=== PATIENT | female | born 2000 | race Caucasian/White ===

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

== ENCOUNTER 2019-01-05 13:38 | Emergency (ER) | payer OTHER ==
--- OUTSIDE RECORDS SUMMARY | 2019-01-05 13:56 | XMS REPORT ---
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, in partial remission Problem Anxiety F41.9 Active 22345287 Problem Insomnia due to F51.05 Active 95902239 other mental disorder ALLERGIES No Information ENCOUNTERS Encounter Location Date Diagnosis [facility] [address] Dec, [place] [address] [facility] [address] [facility] Dec, [place] [address] [facility] [address] [place] [address] Nov, [place] [address] Oct, [place] [address] [facility] [address] [place] Oct, [place] [address] Oct, [place] [address] Mar, Sleep disturbance G47.9 and [facility] [place] Anxiety F41.9 [address] [facility] [address] February, [place] [address] [facility] [address] [facility] [address] Feb, 2018 [place] [address] [facility] [address] February, [place] [address] [facility] [address] February, [place] [address] contraception Z30.42 and Dependent edema R60.9 [facility] [address] [facility] Jan, Anxiety F41.9 [place] [address] Jan, Anxiety F41.9 [place] [address] [facility] [address] [place] Dec, Anxiety F41.9 [place] [address] [facility] [address] [place] Dec, [place] [address] disorder, in partial remission F33.41 ; Anxiety F41.9 ; Overweight (BMI 25.0-29.9) E66.3 and BMI 25.0-25.9,adult Z68.25 [facility] [address] [facility] [address] Nov, Anxiety F41.9 [facility] [place] [address] [facility] [address] [place] Nov, [place] [address] [facility] [address] [place] [address] Nov, Anxiety F41.9 [place] [address] [facility] [address] [place] Oct, [place] [address] [facility] [address] [place] Oct, Anxiety F41.9 ; [place] [address] due to other mental disorder F51.05 ; Overweight (BMI 25.0-29.9) E66.3 and BMI 26.0-26.9,adult Z68.26 [facility] [address] Sep, [place] [address] [facility] [address] Aug, [place] [address] [facility] [address] Aug, [place] [address] disorder, in partial remission F33.41 ; School physical exam Z02.0 ; Encounter for immunization Z23 ; BMI 25.0-25.9,adult Z68.25 and Overweight (BMI 25.0-29.9) E66.3 [place] [address] [place] Aug, Severe depression F32.2 ; [place] [address] Encounter for Depo-Provera contraception Z30.42 and Encounter for immunization Z23 [place] [address] Aug, Severe depression F32.2 [place] [address] [place] [address] [place] Jul, Severe depression F32.2 [place] [address] Facilitated Enrollment UNKNOWN Jul, - [place] [address] [place] Jul, Severe depression F32.2 ; [place] [address] Stress headaches F45.41 and Sleep disturbance G47.[address] Jul, [place] [address] May, [place] [address] examination of student Z02.0 ; Encounter for Depo-Provera contraception Z30.42 and HPV vaccine counseling Z71.89 [place] [address] [place] February, [place] [address] [place] [address] [place] February, [place] [address] contraception Z30.42 and Screening for STD (sexually transmitted disease) Z11.3 [place] [address] February, [place] [address] [place] [address] [place] Nov, Depo contraception Z30.40 [place] [address] [place] [address] [place] Oct, [place] [address] disorder F41.1 and Lumbago of lumbosacaral region with sciatica M54.40 [place] [address] [place] Sep, Sleep disturbance G47.9 [place] [address] Stress headaches F45.41 [place] [address] [place] Jul, Depo contraception Z30.49 [place] [address] [place] [address] [place] Jul, [place] [address] Z23 [place] [address] [place] Jul, [place] [address] [place] [address] [place] Apr, [place] [address] [place] [address] February, [place] [address] initiation of other contraceptive measures Z30.[address] Jan, [place] [address] [facility] [address] Dec, [place] [address] [facility] [address] Dec, [place] [address] [facility] [address] [place] Dec, [place] [address] [facility] [address] [place] Dec, [place] [address] disorder [address], [place] [address] [place] [address] [place] Nov, Neck pain M54.2 [place] [address] Contusion of head, unspecified part of head, subsequent encounter S00.93XD [facility] [address] Jul, [place] [address] [facility] [address] Jul, [place] [address] [facility] [address] Jun, [place] [address] [facility] [address] [place] Jun, [place] [address] disorder [address] Jun, Generalized anxiety [place] disorder 300.02 [address] [place] [address] [place] Jun, Anxiety 300.00 [place] [address] Immunization due V05.9 [facility] [address] [place] May, [place] [address] health check V20.2 [facility] [address] Apr, [place] [address] [facility] [address] Mar, Folliculitis 704.8 [place] [address] [facility] [address] Mar, [place] [address] prescription of oral contraceptives V25.[address] [place] [address] February, UTI [place] [address] infection) 599.0 [facility] [address] February, [place] [address] [place] [address] Jan, [place] [address] [facility] [address] Jan, [place] [address] [facility] [address] Nov, Lumbago 724.2 ; [place] [address] Dysmenorrhea 625.3 and Immunization due V05.[address] [place] [address] Oct, OCP ([place] [address] pills) initiation V25.01 and Dysmenorrhea 625.[address] [place] [address] Sep, [place] [address] [place] [address] [place] [address] [place] [address] Sep, [place] [address] Sep, [place] [address] Sep, [place] [address] [place] [address] [place] Sep, [place] [address] [place] [address] Sep, Lymphadenopathy 785.6 [place] [address] Jaw pain 784.[address] Sep, [address] Sep, Lymphadenopathy 785.6 [place] [address] [facility] [address] Aug, Lymphadenopathy 785.6 [place] [address] [place] [address] May, [place] [address] [facility] [address] May, [place] [address] [facility] [address] May, [place] [address] [facility] [address] Mar, Low back pain 724.2 [place] [address] [place] [address] Mar, [place] [address] health check V20.2 and Seasonal allergic rhinitis 477.9 IMMUNIZATIONS No Known Immunizations SOCIAL HISTORY Never Assessed REASON FOR REFERRAL FUNCTIONAL STATUS PLAN OF CARE VITAL SIGNS MEDICATIONS Unknown Medications PROCEDURES No Known procedures RESULTS No Results REASON FOR VISIT Information Insurance Providers [facility] Health Member Patient Patient Patient Patient Patient Subscriber Subscriber Subscriber Group Insurance Plan Plan Plan Plan ID Relationship Address Phone Name Date of ID Name Date of No Type Insurance Insurance Insurance Coverage to Subscriber Address Phone Name Dates Medicaid [id number] Medicaid self Rachana [id number] Wrap Ira [facility] [address] [place] [address] [address] Express self Rachana [id number] [facility] [id number] [address] [address] [place] [address] Company Blue [phone] Blue self Rachana [id number] Choice Opt [id number] 89 Choice Opt [place] 0 Medical [place] Medical [address] Medicaid [id number] Medicaid self Rachana [id number] [facility] [address] [place] [address] Andrew [phone] Andrew self Rachana [id number] Medicaid [place] 47 [place] [address] Medical Excellus [phone] Excellus Rachana [id number] BCBS PPO [id number] BCBS PPO [place] 4 EPO Trad [place] EPO Trad [address] [place] [phone] Andrew self Rachana [id number] Medicaid [id number] Medicaid [facility] [place] [address] [employer] Blue [phone] Blue self Rachana [id number] Choice Opt 9255 [address] 83 Choice Opt [place] GG[address] [place] [id number] [place] Hplex Remi Dept Hplex Remi [facility] [address] Case [phone] Case self Rachana [id number] Management [place] [address] [facility] [address] [facility] MEDICAL (GENERAL) HISTORY Type Description Date Medical History seasonal allergies Medical History anxiety Medical History Seasonal allergic rhinitis Medical History Low back pain Medical History Dysmenorrhea Medical History Generalized anxiety disorder
--- OUTSIDE RECORDS SUMMARY | 2019-01-05 13:56 | XMS REPORT ---
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 81909575 depressive disorder, in partial remission Problem Anxiety F41.9 Active 38134920 Problem Insomnia due to F51.05 Active 85807732 other mental disorder ALLERGIES No Information ENCOUNTERS Encounter Location Date Diagnosis [facility] [address] Dec, [place] [address] Nov, [place] [address] Oct, [place] [address] [facility] [address] Oct, [place] [address] Oct, [place] [address] Mar, Sleep disturbance G47.9 [facility] [place] Anxiety F41.9 [address] [facility] [address] February, [place] [address] February, [place] [address] [facility] [address] February, Encounter [place] [address] contraception Z30.42 and Dependent edema R60.9 [place] [address] February, [place] [address] [facility] [address] [facility] Jan, Anxiety F41.9 [place] [address] Jan, Anxiety F41.9 [place] [address] [place] [address] Dec, Anxiety F41.9 [place] [address] [place] [address] Dec, [place] [address] disorder, in partial remission F33.41 ; Anxiety F41.9 ; Overweight (BMI 25.0-29.9) E66.3 and BMI 25.0-25.9,adult Z68.25 [facility] [address] [place] [address] Nov, Anxiety F41.9 [address] [place] [address] Nov, [place] [address] [facility] [address] [facility] Nov, Anxiety F41.9 [place] [address] [place] [address] Oct, [place] [address] Oct, Anxiety F41.9 ; [place] [address] due to other mental disorder F51.05 ; Overweight (BMI 25.0-29.9) E66.3 and BMI 26.0-26.9,adult Z68.26 [place] [address] Sep, [place] [address] [facility] [address] Aug, [place] [address] [place] [address] Aug, [place] [address] disorder, in partial remission F33.41 ; School physical exam Z02.0 ; Encounter for immunization Z23 ; BMI 25.0-25.9,adult Z68.25 and Overweight (BMI 25.0-29.9) E66.3 [place] [address] Aug, Severe depression F32.2 ; [place] [address] Encounter for Depo-Provera contraception Z30.42 and Encounter for immunization Z23 [place] [address] [place] Aug, Severe depression F32.2 [place] [address] Jul, Severe depression F32.2 [place] [address] Facilitated Enrollment UNKNOWN Jul, - [place] [address] Jul, Severe depression F32.2 ; [place] [address] Stress headaches F45.41 and Sleep disturbance G47.9 [facility] [address] [facility] Jul, [place] [address] May, [place] [address] examination of student Z02.0 ; Encounter for Depo-Provera contraception Z30.42 and HPV vaccine counseling Z71.[address] February, [place] [address] February, Encounter [place] [address] contraception Z30.42 and Screening for STD (sexually transmitted disease) Z11.3 [place] [address] February, [place] [address] Nov, Depo contraception Z30.40 [place] [address] Oct, [place] [address] disorder F41.1 and Lumbago of lumbosacaral region with sciatica M54.40 [place] [address] Sep, Sleep disturbance G47.9 [place] [address] Stress headaches F45.41 [place] [address] Jul, Depo contraception Z30.49 [place] [address] [place] [address] Jul, [place]counter [place] [address] Z23 [place] [address] Jul, [place] [address] [place] [address] Apr, [place] [address] [place] [address] February, [place] [address] initiation of other contraceptive measures Z30.09 [facility] [address] [facility] Jan, [place] [address] [facility] [address] Dec, [place] [address] [facility] [address] Dec, [place] [address] [facility] [address] Dec, [place] [address] [facility] [address] Dec, [place] [address] disorder F41.1 [facility] [address] [facility] Nov, [place] [address] [facility] [address] Nov, Neck pain M54.2 [place] [address] Contusion of head, unspecified part of head, subsequent encounter S00.93XD [facility] [address] Jul, [place] [address] [place] [address] Jul, [place] [address] [place] [address] Jun, [place] [address] [facility] [address] [facility] Jun, Generalized anxiety [place] disorder 300.02 [address] [place] [address] Jun, [place] [address] disorder 300.02 [place] [address] Jun, Anxiety 300.00 [place] [address] Immunization due V05.9 [facility] [address] May, Rout[place] [address] health check V20.2 [facility] [address] Apr, [place] [address] [facility] [address] Mar, Folliculitis 704.8 [place] [address] [facility] [address] Mar, [place] [address] prescription of oral contraceptives V25.01 [facility] [address] February, UTI ([place] [address] infection) 599.0 [facility] [address] February, [place] [address] [facility] [address] Jan, [place] [address] [place] [address] Jan, [place] [address] [facility] [address] Nov, Lumbago 724.2 ; [place] [address] Dysmenorrhea 625.3 and Immunization due V05.9 [place] [address] Oct, OCP ([place] [address] pills) initiation V25.01 and Dysmenorrhea 625.3 [place] [address] Sep, [place] [address] [place] [address] Sep, [place] [address] [place] [address] Sep, [place] [address] Sep, [place] [address] [place] [address] [address] Sep, [place] [address] [place] [address] Sep, [place] [address] [place] [address] Sep, Lymphadenopathy 785.6 [place] [address] Jaw pain 784.[address] Sep, [place] [address] [place] [address] Sep, Lymphadenopathy 785.6 [place] [address] [place] [address] Aug, Lymphadenopathy 785.6 [place] [address] [place] [address] May, [place] [address] [place] [address] May, [place] [address] [place] [address] May, [place] [address] [place] [address] Mar, Low back pain 724.2 [place] [address] [place] [address] Mar, [place] [address] health check V20.2 and Seasonal allergic rhinitis 477.9 IMMUNIZATIONS No Known Immunizations SOCIAL HISTORY Never Assessed REASON FOR REFERRAL FUNCTIONAL STATUS PLAN OF CARE VITAL SIGNS MEDICATIONS Unknown Medications PROCEDURES No Known procedures RESULTS No Results REASON FOR VISIT 1st no show Insurance Providers [facility] Health Health Member Patient Patient Patient Patient Patient Subscriber Subscriber Subscriber Group Insurance Plan Plan Plan Plan ID Relationship Address Phone Name Date of ID Name Date of No Type Insurance Insurance Insurance Coverage to Subscriber Address Phone Name Dates Blue [phone] Blue self Rachana [id number] Choice Opt [id number] Choice Opt [place] 0 Medical [place] Medical [address] [id number] [phone] Medicaid self Rachana [id number] [facility] [address] [place] [address] Blue [phone] Blue self Rachana [id number] Choice Opt 9255 Attn 83 Choice Opt [place] GG457 Evans Claims [id number] Evans Hplex Remi Dept Hplex Remi [facility] [address] [place] [phone] [place] self Rachana [id number] Medicaid [place] 47 Medicaid [facility] [address] Medical Express [address] Express self Rachana [id number] [facility] Scripts [id number] Scripts [place] [address] [place] [address] Company Andrew [phone] Andrew self Rachana [id number] Medicaid [id number] Medicaid [facility] [place] [address] [employer] Excellus [phone] Excellus Rachana [id number] BCBS PPO [id number] BCBS PPO [place] 4 EPO Trad [place] EPO Trad [address] Case [phone] Case self Rachana [id number] Management [place] 02 Management [facility] [address] [facility] Medicaid [phone] Medicaid self Rachana [id number] [facility] [address] [place] [address] MEDICAL (GENERAL) HISTORY Type Description Date Medical History seasonal allergies Medical History anxiety Medical History Seasonal allergic rhinitis Medical History Low back pain Medical History Dysmenorrhea Medical History Generalized anxiety disorder
[2019-01-05 14:01] VITALS: BP 98/67
[2019-01-05] MEDS ORDERED: Ketorolac INJ* 60 MG/2 ML VIAL IM ONE (15:07)
--- NOTE | 2019-01-05 15:41 | UC ---
Back Pain HPI - HPI Summary HPI Summary: pt c/o sudden onset of right side low back pain after lifting 95 lbs yesterday. Pt states that she feels as thought her low back is "crooked and flat ". Pt has been applying ice and warm heat with no improvement. Pt denies loss of bowel and bladder control, denies numbness or tingling. - History of Current Complaint Chief Complaint: UCBackPain Stated Complaint: BACK INJURY Time Seen by Provider: 01/05/19 14:47 Hx Obtained From: Patient Hx Last Menstrual Period: 01/04/18 ?: No Onset/Duration: Sudden Onset, Lasting Days, Still Present Timing: Constant Severity Initially: Moderate Severity Currently: Moderate Pain Intensity: 8 Back Pain: Is Discrete @ Character: Dull, Aching, Spasmodic, Stiffness Aggravating Factor(s): Movement Alleviating Factor(s): Rest, Position Associated Signs And Symptoms: Positive: Negative - Risk Factors AAA Risk Factors: Negative TAD Risk Factors: Negative Cauda Equina Risk Factors: Negative Epidural Abscess Risk Factors: Negative - Allergies/Home Medications Allergies/Adverse Reactions: Allergies Allergy/AdvReac Type Severity Reaction Status Date / Time No Known Allergies Allergy Verified 01/05/19 14:01 Home Medications: Home Medications Acetaminophen 325 mg PO 01/05/19 [History] PMH/Surg Hx/FS Hx/Imm Hx Previously Healthy: Yes - Surgical History Surgical History: None - Family History Known Family History: Positive: Other - BIPOLAR Negative: Diabetes - Social History Occupation: Student Lives: With Family Alcohol Use: None Substance Use Type: None Smoking Status (MU): Never Smoked Tobacco Have You Smoked in the Last Year: No Review of Systems All Other Systems Reviewed And Are Negative: Yes Constitutional: Positive: Negative Skin: Positive: Negative Eyes: Positive: Negative ENT: Positive: Negative Respiratory: Positive: Negative Cardiovascular: Positive: Negative Gastrointestinal: Positive: Negative Genitourinary: Positive: Negative Motor: Positive: Decreased ROM - low back Neurovascular: Positive: Negative Musculoskeletal: Positive: Decreased ROM - low back, Myalgia - low back Neurological: Positive: Negative Psychological: Positive: Negative Is Patient Immunocompromised?: No Physical Exam Triage Information Reviewed: Yes Appearance: Pain Distress Vital Signs: Initial Vital Signs Temp 98.7 F 01/05/19 13:58 Pulse 87 01/05/19 13:58 Resp 18 01/05/19 13:58 BP 98/67 01/05/19 13:58 Pulse Ox 99 01/05/19 13:58 Vital Signs Reviewed: Yes Eye Exam: Normal ENT Exam: Normal Dental Exam: Normal Neck exam: Normal Respiratory Exam: Normal Cardiovascular Exam: Normal Musculoskeletal: Positive: Strength Limited @ - low back, ROM Limited @ - low back Neurological Exam: Normal Psychological Exam: Normal Skin Exam: Normal Back Pain Course/Dx - Differential Dx/Diagnosis Differential Diagnosis/HQI/PQRI: Herniated Disc, Strain, Sprain Provider Diagnosis: Low back strain Discharge - Sign-Out/Discharge Documenting (check all that apply): Patient Departure All imaging exams completed and their final reports reviewed: No Studies - Discharge Plan Condition: Stable Disposition: HOME Prescriptions: Cyclobenzaprine TAB* [Flexeril 10 MG TAB*] 10 mg PO Q8H PRN #15 tab PRN Reason: Pain Ibuprofen TAB* [Motrin TAB* 800 MG] 800 mg PO Q8H PRN #15 tab PRN Reason: Pain Patient Education Materials: Low Back Strain (ED), Lower Back Exercises (ED) Referrals: [facility] ONE[facility],Manisha Gutierrez [Primary Care Provider] - If Needed - Billing Disposition and Condition Condition: STABLE Disposition: Home
== END 2019-01-05 15:52 | disposition home or self-care (01) ==
LOC: UCEAST 13:38
DX: S39.012A Strain of muscle, fascia and tendon of lower back, initial encounter (principal); X58.XXXA Exposure to other specified factors, initial encounter; Y92.9 Unspecified place or not applicable
CPT/HCPCS: 72100; 96372; 99212; G0463; J1885

== ENCOUNTER 2019-10-15 18:31 | Emergency (ER) | payer OTHER ==
[2019-10-15 18:51] VITALS: BP 105/68
--- NOTE | 2019-10-15 19:10 | UC ---
Complaint Female HPI - HPI Summary HPI Summary: 19 year old female with PMH + for bipolar, depression, 2 recent UTI's treated with amoxicillin, unsure of other meds, treated at [facility] and at school in [place]. Currently no fever, chils, back pain. + urinary frequency, urgency, burnign with urination. no hematuria. no vaginal discharge, vaginal symptoms. - History Of Current Complaint Stated Complaint: BURNING URINATION Hx Obtained From: Patient Hx Last Menstrual Period: iuid ?: No Onset/Duration: Sudden Onset Timing: Constant Severity Initially: Moderate Severity Currently: Moderate Pain Intensity: 6 Pain Scale Used: 0-10 Numeric Character: Burning, Cramping, Tearing Aggravating Factor(s): Urination Associated Signs And Symptoms: Negative: Fever, Back Pain, Vaginal Bleeding/ Discharge, Vaginal Discharge, Nausea, Vomiting(# Of Episodes =), Genital Swelling, Genital Blisters, Retained Foregin Body (Specify) Related Hx: Similar Episode/Dx as: - 2 in past 5 months - Allergies/Home Medications Allergies/Adverse Reactions: Allergies Allergy/AdvReac Type Severity Reaction Status Date / Time No Known Allergies Allergy Verified 10/15/19 18:50 Home Medications: Home Medications Lurasidone HCl [Latuda] 60 mg PO DAILY 10/15/19 [History Confirmed 10/15/19] PMH/Surg Hx/FS Hx/Imm Hx Previously Healthy: Yes - Surgical History Surgical History: None - Family History Known Family History: Positive: Other - BIPOLAR, Non-Contributory Negative: Diabetes - Social History Occupation: Student Alcohol Use: None Substance Use Type: None Smoking Status (MU): Never Smoked Tobacco Have You Smoked in the Last Year: No Review of Systems All Other Systems Reviewed And Are Negative: Yes Constitutional: Negative: Fever, Chills, Fatigue Gastrointestinal: Negative: Abdominal Pain, Vomiting, Diarrhea, Nausea Genitourinary: Positive: Dysuria, Frequency, Urgency. Negative: Hematuria, Vaginal/Penile Burning, Vaginal/Penile Itching, Vaginal/Penile Discharge, Vaginal/Penile Pain, Vaginal/Penile Tenderness, Ulceration/Lesion, Abnormal Bleeding Motor: Positive: Negative Psychological: Positive: Negative Is Patient Immunocompromised?: No Physical Exam Triage Information Reviewed: Yes Appearance: Well-Appearing, No Pain Distress, Well-Nourished Vital Signs: Initial Vital Signs Temp 98.2 F 12/23/19 18:44 Pulse 79 10/15/19 18:44 Resp 14 10/15/19 18:44 BP 105/68 10/15/19 18:44 Pulse Ox 100 10/15/19 18:44 Vital Signs Reviewed: Yes Eyes: Positive: Conjunctiva Clear ENT: Positive: Hearing grossly normal Abdomen Description: Positive: No Organomegaly, Soft, Bruit, Other: - mild suprapubic tenderness. Negative: CVA Tenderness (R), CVA Tenderness (L), Distended, Guarding, Hepatomegaly, McBurney's Point Tenderness, Peritoneal Signs , Pulsatile Mass Musculoskeletal Exam: Normal Neurological Exam: Normal Psychological Exam: Normal Skin Exam: Normal Skin: Negative: Rashes Complaint Female Dx - Course Course Of Treatment: UA- + Urinary tract infection, uncomplicated - CUltures will be sent, you will be called if the antibiotic needs to be changed - Increase fluid intake - Motrin/ TYlenol as needed for symptoms - To go ER with increased pain, fever > 101, lower back pain, no urination for 4 hours. - Differential Dx/Diagnosis Differential Diagnosis/HQI/PQRI: Cervicitis, Ureteral Stone, Urinary Tract Infection Provider Diagnosis: UTI (urinary tract infection) Discharge ED - Sign-Out/Discharge Documenting (check all that apply): Patient Departure All imaging exams completed and their final reports reviewed: No Studies - Discharge Plan Condition: Good Disposition: HOME Prescriptions: Sulfamethox/Trimethoprim DS* [Bactrim DS 800/160 TAB*] 1 tab PO BID #10 tab Patient Education Materials: Urinary Tract Infection in Women (ED) Additional Instructions: Urinary tract infection, uncomplicated - CUltures will be sent, you will be called if the antibiotic needs to be changed - Increase fluid intake - Motrin/ TYlenol as needed for symptoms - To go ER with increased pain, fever > 101, lower back pain, no urination for 4 hours. - Billing Disposition and Condition Condition: GOOD Disposition: Home
--- NOTE | 2019-10-18 07:12 | UC ---
- Progress Note Progress Note: Urine culture showed no growth. It is ok to stop the antibiotic. If she stil has symptoms, should follow up with her primary care doctor for evaluation. Course/Dx - Diagnoses Provider Diagnoses: UTI (urinary tract infection) Discharge ED - Sign-Out/Discharge Documenting (check all that apply): Post-Discharge Follow Up All imaging exams completed and their final reports reviewed: No Studies - Discharge Plan Condition: Good Disposition: HOME Prescriptions: Sulfamethox/Trimethoprim DS* [Bactrim DS 800/160 TAB*] 1 tab PO BID #10 tab Patient Education Materials: Urinary Tract Infection in Women (ED) Referrals: [facility],Manisha Gutierrez [Primary Care Provider] - Additional Instructions: Urinary tract infection, uncomplicated - CUltures will be sent, you will be called if the antibiotic needs to be changed - Increase fluid intake - Motrin/ TYlenol as needed for symptoms - To go ER with increased pain, fever > 101, lower back pain, no urination for 4 hours. - Billing Disposition and Condition Condition: GOOD Disposition: Home
== END 2019-10-15 19:30 | disposition home or self-care (01) ==
LOC: UCEAST 18:31
DX: N39.0 Urinary tract infection, site not specified (principal); F31.9 Bipolar disorder, unspecified; Z79.899 Other long term (current) drug therapy
CPT/HCPCS: 81003; 84702; 87086; 99212; G0463